=== PATIENT | female | born 1950 | race Caucasian/White ===

== ENCOUNTER → 2016-09-27 | Day surgery (SDC) | payer OTHER ==
[~2016-09-27] MED LIST: ALPRAZOLAM ER1 MG PO; CLARITIN10 M3 PO; COZAAR PO; FLONASE 0.05% N16 G1; HYDROCODON-ACE1 EAC5 PO; TRIAMTERENE-HC1 EAC1 PO; ZOLOFT PO
--- NOTE | ~2016-09-27 | OR ---
Unit #: [id number] #: [id number] Patient: GIACOMO KEENE [id number] [address] [place], [place] [address] [id number] O MR#: [id number] NAME: GIACOMO KEENE ROOM: Date of Procedure: 09/27/2016 Admission Date: 09/27/2016 Surgeon: Dereck Lock M.D. : 1950 Attending Physician: Dereck Lock M.D. Referring Physician: Dereck Lock M.D. Primary Care Physician: Evi Martínez M.D. OPERATIVE REPORT PROCEDURE PERFORMED Colonoscopy to cecum. INDICATIONS FOR PROCEDURE A 66-year-old female, average risk for colorectal cancer, here for screening colonoscopy. MEDICATIONS Monitored anesthesia. POSTOPERATIVE FINDINGS 1. Colonoscopy completed to cecum. Prep was adequate. 2. No polyps, masses, or colitis was seen. PLAN Repeat colonoscopy in 10 years. DESCRIPTION OF PROCEDURE The patient was explained of the procedure, risks, and benefits along with risks and benefits of anesthesia. She was brought to the endoscopy room. Propofol anesthesia was given. Rectal exam was done, which was normal. Colonoscope was lubricated, passed up the rectum, advanced under direct vision all the way to the cecum. Cecum was identified by ileocecal valve and appendiceal orifice. At this point, I started to pull the scope out carefully looking. No polyps, masses, or colitis was seen. Mucosa was normal and healthy. I retroflexed in the rectum, small hemorrhoids seen. Gently, the scope was pulled out. She tolerated it well. Dictated by... Jazmin Yao/clayton TD: 09/27/2016 23:35 JOB #: [id number] Unit #: [id number] #: [id number] Patient: GIACOMO KEENE OPERATIVE REPORT Page 1 of 1 X Dereck Lock MD PROCEDURE OPERATIVE NOTE
== END | disposition home or self-care (01) ==
LOC: COPS 08:46
PROVIDERS: Internal Medicine
PROC: 0DJD8ZZ Inspection of Lower Intestinal Tract, Via Natural or Artificial Opening Endoscopic (ICD-10-PCS; principal; 2016-09-27 10:00)
DX: Z12.11 Encounter for screening for malignant neoplasm of colon (principal); K64.9 Unspecified hemorrhoids; I10 Essential (primary) hypertension; F17.203 Nicotine dependence unspecified, with withdrawal; M32.9 Systemic lupus erythematosus, unspecified; Z79.899 Other long term (current) drug therapy; Z88.0 Allergy status to penicillin; Z88.8 Allergy status to other drugs, medicaments and biological substances; Z90.710 Acquired absence of both cervix and uterus
CPT/HCPCS: J2250

== ENCOUNTER → 2017-03-23 | Outpatient (CLI) | payer OTHER ==
--- NOTE | ~2017-03-23 | MY29 ---
[facility] A Service of [facility] RADIOLOGY TEXT RESULTS PATIENT: GIACOMO KEENE LOCATION: [facility] : 50 UNIT #: [id number] AGE: [address]: LUCILA DYE MD SEX: F ORDER DR: [id number] [facility] [address] [facility]. [place], [place] [address] [id number] O MR#: [id number] Acc #: [id number] NAME: GIACOMO KEENE. : 1950 SEX: F STUDY DATE/TIME: 03/23/2017 7:55 UNIT: [facility] ROOM: STUDY DESCRIPTION: [facility] SCREENING W/ CAD BILAT Attending Physician: Lucila Dye M.D. Referring Physician: Lucila Dye M.D. Ordering Physician: Evi Dye M.D. Primary Care Physician: Lucila Dye M.D. MEDICAL IMAGING REPORT This report is preliminary unless electronic signature is present EXAM Bilateral digital screening mammogram with CAD, 03/23/2017 HISTORY Family history of breast cancer in an aunt and 2 cousins. No personal history of breast cancer or current complaints. COMPARISON Bilateral screening mammogram 03/16/2016, 08/14/2014, 08/12/2013. FINDINGS CC and MLO views were obtained of each breast utilizing digital technique and reviewed with an FDA-approved CAD device. Heterogeneously dense fibroglandular tissue is present bilaterally which can limit sensitivity of mammography. Round markers are placed over each breast denoting skin lesions. The parenchymal pattern appears stable. No new or developing nodules are identified. Benign calcifications are present within the left breast. No suspicious clustered microcalcifications are seen. No architectural distortion, skin thickening or nipple retraction is identified. IMPRESSION Routine screening mammogram recommended in one year. Patients over the age of 40 are entered into a reminder system with target due date for the next mammogram. A result letter will also be sent to the patient. BIRADS: 2 Benign Finding Dictated by... [facility] A Service of [facility] RADIOLOGY TEXT RESULTS PATIENT: GIACOMO KEENE LOCATION: [facility] : 50 UNIT #: [id number] AGE: [address]: LUCILA DYE MD SEX: F ORDER DR: Anastasia Abarca M.D. THIS IS AN ELECTRONICALLY VERIFIED REPORT Anastasia Abarca M.D. at 03/26/2017 8:47 AM Vinay TD: 03/23/2017 11:41 JOB #: [id number] MEDICAL IMAGING REPORT Page 1 of 1 COPY
== END | disposition home or self-care (01) ==
LOC: CWCC 07:30
DX: Z12.31 Encounter for screening mammogram for malignant neoplasm of breast (principal); Z80.3 Family history of malignant neoplasm of breast
CPT/HCPCS: G0202